=== PATIENT | female | born 1960 | race Caucasian/White ===

== ENCOUNTER 2021-03-26 14:40 | Inpatient (IN) ==
[2021-03-26 16:13] LABS: Basophils % 0.4 % (0.0-0.8); Eosinophils # 0.1 10*3/uL (0.0-0.87); Hematocrit 39.6 VOL% (35.7-47.0); Hemoglobin 13.1 GM/DL (12.0-16.0); Immature Granulocytes % 0.4 %; Immature Granulocytes Absolute 0.04 #; Lymphocytes # 1.4 10*3/uL (1.4-4.0); Lymphocytes % 12.5 % (21.3-54.2); Mean Corpuscular HGB Conc 33.1 GM/DL (32-36); Mean Corpuscular Volume 91.9 FL (87-102); Mean Platelet Volume 11.3 FL (9.6-12.0); Monocytes % 6.2 % (1.7-12.7); Neutrophils % 79.5 % (38.7-73.9); Platelet Count 231 T/CUMM (130-400); Red Blood Count 4.31 MC/CUMM (3.8-5.5); Red Cell Distribution Width 13.2 % (9.3-17.3); White Blood Count 11.4 T/CUMM (4-12)
[2021-03-26 16:26] LABS: Bilirubin,Urine Negative (Negative); Blood, Urine Negative (Negative); Glucose,Urine (UA) Negative (Negative); Ketones,Urine 20 mg/dL (Negative); Nitrite,Urine Negative (Negative); Protein,Urine Negative; Squamous Epithelial Cell,Urine Occasional /HPF (0-10); Urine Appearance CLEAR (Clear); Urine Color Straw (Yellow); Urine Specific Gravity 1.004 (1.001-1.035); Urine Urobilinogen < 2.0 EU/DL (0.2-1.0)
[2021-03-26 16:33] LABS: Bilirubin,Total 1.1 MG/DL (0.20-1.00); Calcium 8.9 MG/DL (8.5-10.1); Osmolality,Calculated 274.5 MOS/KG (273-304); Potassium 3.8 MMOL/L (3.5-5.1); Total Protein 7.5 G/DL (6.4-8.2)
[2021-03-26] MEDS ORDERED: ONDANSETRON 4 MG/2 ML VIAL IV PRN (19:26)
[2021-03-26] MEDS ORDERED: hydrALAZINE 20 MG/1 ML VIAL IV PRN (19:26)
[2021-03-26] MEDS ORDERED: DOCUSATE SODIUM 100 MG CAPSULE PO PRN (19:26)
[2021-03-26] MEDS ORDERED: GLUCAGON 1 MG VIAL IM PRN (19:26)
[2021-03-26] MEDS ORDERED: ZALEPLON 5 MG CAPSULE PO PRN (19:26)
[2021-03-26] MEDS ORDERED: DEXTROSE 50% 25 GM/50 ML VIAL IV PRN (19:26)
[2021-03-26] MEDS ORDERED: ACETAMINOPHEN 325 MG TABLET PO PRN (19:26)
[2021-03-26] MEDS ORDERED: HEPARIN 5,000 UNIT/1 ML VIAL IV ONE (19:29)
[2021-03-26] MEDS ORDERED: HYDROmorphone 2 MG/1 ML VIAL IV PRN (19:30)
[2021-03-26 20:32] LABS: Thyroid Stimulating Hormone 0.709 uIU/ml (0.358-3.74)
[2021-03-26 20:54] LABS: INR 1.1; PT Patient Result 12.4 SECS (10.5-12.0)
[2021-03-26] MEDS: ACETAMINOPHEN/CODEINE 300-30 MG TABLET PO PRN (21:33)
[2021-03-26] MEDS: DEXTROSE 5% NACL 0.9% 1,000 ML IV SCH (23:27)
[2021-03-27] MEDS ORDERED: HEPARIN DRIP 25,000 UNITS/500 ML PREMIX IV SCH (00:30)
[2021-03-27] MEDS: DEXTROSE 5% NACL 0.9% 1,000 ML IV SCH ×4 (04:39→17:31)
[2021-03-27 05:08] LABS: Basophils % 0.4 % (0.0-0.8); Eosinophils % 0.4 % (0.00-10.9); Hematocrit 35.1 VOL% (35.7-47.0); Hemoglobin 11.5 GM/DL (12.0-16.0); Immature Granulocytes % 0.5 %; Immature Granulocytes Absolute 0.04 #; Lymphocytes # 0.8 10*3/uL (1.4-4.0); Mean Corpuscular HGB Conc 32.8 GM/DL (32-36); Mean Corpuscular Volume 91.6 FL (87-102); Mean Platelet Volume 11.4 FL (9.6-12.0); Monocytes % 6.8 % (1.7-12.7); Neutrophils % 81.9 % (38.7-73.9); Platelet Count 195 T/CUMM (130-400); Red Blood Count 3.83 MC/CUMM (3.8-5.5); Red Cell Distribution Width 13.2 % (9.3-17.3); White Blood Count 8.1 T/CUMM (4-12)
[2021-03-27 05:39] LABS: Albumin 3.3 G/DL (3.4-5.0); Bilirubin,Total 0.7 MG/DL (0.20-1.00); Calcium 8.5 MG/DL (8.5-10.1); Osmolality,Calculated 278.5 MOS/KG (273-304); Potassium 3.6 MMOL/L (3.5-5.1); Total Protein 6.9 G/DL (6.4-8.2)
[2021-03-27 08:44] LABS: % Iron Saturation 15.5 % (18-50)
[2021-03-27] MEDS: PANTOPRAZOLE 40 MG VIAL IV SCH ×3 (09:00→21:26)
[2021-03-27] MEDS: LACTATED RINGERS 1,000 ML IV SCH (09:10)
[2021-03-27] MEDS ORDERED: propofoL 200 MG/20 ML VIAL IV ONE ×2 (09:24→09:41)
[2021-03-27] MEDS ORDERED: ONDANSETRON 4 MG/2 ML VIAL ONE (09:24)
[2021-03-27] MEDS ORDERED: LIDOCAINE 2% 5 ML VIAL ONE (09:24)
[2021-03-27] MEDS ORDERED: PROMETHAZINE INJ 25 MG in SODIUM CHLORIDE 0.9% 50 ML IV PRN (09:31)
[2021-03-27 10:14] LABS: AFP Tumor < 2.2 NG/ML (0-8); Hepatitis B Core IgM Quant < 0.05 Index; Hepatitis B Surface Ag Quant < 0.10 Index; Hepatitis B Surface Ag Result Non-Reactive (NonReactive); Hepatitis C Virus Ab Quant 0.04 Index; Hepatitis C Virus Ab Result Non-Reactive (NonReactive)
[2021-03-27] MEDS: PROMETHAZINE 25 MG TABLET PO SCH ×3 (10:37→21:27)
[2021-03-27] MEDS: ACETAMINOPHEN/CODEINE 300-30 MG TABLET PO PRN (14:20)
[2021-03-27] MEDS: APIXABAN 5 MG TABLET PO SCH (21:27)
[2021-03-28] MEDS: PROMETHAZINE 25 MG TABLET PO SCH ×4 (04:45→21:10)
[2021-03-28] MEDS: DEXTROSE 5% NACL 0.9% 1,000 ML IV SCH ×5 (07:40→18:32)
[2021-03-28] MEDS: APIXABAN 5 MG TABLET PO SCH ×2 (09:02→21:10)
[2021-03-28] MEDS: PANTOPRAZOLE 40 MG VIAL IV SCH ×3 (09:03→21:10)
[2021-03-28] MEDS: LACTATED RINGERS 1,000 ML IV SCH (09:38)
[2021-03-28 09:53] LABS: Basophils % 0.5 % (0.0-0.8); Eosinophils # 0.1 10*3/uL (0.0-0.87); Eosinophils % 2.2 % (0.00-10.9); Hematocrit 34.3 VOL% (35.7-47.0); Hemoglobin 10.9 GM/DL (12.0-16.0); Immature Granulocytes % 0.3 %; Immature Granulocytes Absolute 0.02 #; Lymphocytes # 1.1 10*3/uL (1.4-4.0); Lymphocytes % 18.4 % (21.3-54.2); Mean Corpuscular HGB Conc 31.8 GM/DL (32-36); Mean Corpuscular Volume 94.8 FL (87-102); Mean Platelet Volume 11.3 FL (9.6-12.0); Monocytes % 9.5 % (1.7-12.7); Neutrophils % 69.1 % (38.7-73.9); Platelet Count 200 T/CUMM (130-400); Red Blood Count 3.62 MC/CUMM (3.8-5.5); Red Cell Distribution Width 13.3 % (9.3-17.3)
[2021-03-28 11:04] LABS: Alanine Aminotransferase 16 U/L (13-56); Albumin 2.8 G/DL (3.4-5.0); Alkaline Phosphatase 92 U/L (45-117); Aspartate Amino Transferase 18 U/L (0-37); Bilirubin,Total < 0.39 MG/DL (0.20-1.00); Blood Urea Nitrogen 4 MG/DL (7-18); Calcium 8.3 MG/DL (8.5-10.1); Carbon Dioxide 26 MMOL/L (21-32); Estimated Glom Filtration Rate 116 ML/MIN; Glucose 80 MG/DL (74-106); Osmolality,Calculated 281.8 MOS/KG (273-304); Potassium 4.5 MMOL/L (3.5-5.1); Sodium 144 MMOL/L (136-145); Total Protein 6.3 G/DL (6.4-8.2)
[2021-03-29] MEDS: PROMETHAZINE 25 MG TABLET PO SCH ×5 (03:20→21:12)
[2021-03-29] MEDS: DEXTROSE 5% NACL 0.9% 1,000 ML IV SCH ×4 (03:20→16:00)
[2021-03-29] MEDS ORDERED: DIPHENOXYLATE/ATROPINE 2.5-0.025 MG TABLET PO PRN (08:20)
[2021-03-29] MEDS ORDERED: DIPHENOXYLATE/ATROPINE 2.5-0.025 MG TABLET PO ONE (08:24)
[2021-03-29] MEDS: APIXABAN 5 MG TABLET PO SCH ×2 (09:03→20:11)
[2021-03-29] MEDS: PANTOPRAZOLE 40 MG VIAL IV SCH ×3 (09:04→20:12)
[2021-03-29] MEDS: LACTATED RINGERS 1,000 ML IV SCH (09:20)
[2021-03-29 11:21] LABS: Antinuclear Ab, S 0.5 U
[2021-03-29] MEDS: ACETAMINOPHEN/CODEINE 300-30 MG TABLET PO PRN (15:59)
[2021-03-30] MEDS: DEXTROSE 5% NACL 0.9% 1,000 ML IV SCH ×2 (00:05→07:55)
[2021-03-30] MEDS: PROMETHAZINE 25 MG TABLET PO SCH ×3 (03:26→17:42)
[2021-03-30 04:57] LABS: Basophils % 0.3 % (0.0-0.8); Eosinophils # 0.2 10*3/uL (0.0-0.87); Eosinophils % 2.4 % (0.00-10.9); Hematocrit 32.7 VOL% (35.7-47.0); Hemoglobin 10.5 GM/DL (12.0-16.0); Immature Granulocytes % 0.4 %; Immature Granulocytes Absolute 0.03 #; Lymphocytes # 1.5 10*3/uL (1.4-4.0); Lymphocytes % 21.6 % (21.3-54.2); Mean Corpuscular HGB Conc 32.1 GM/DL (32-36); Mean Platelet Volume 11.3 FL (9.6-12.0); Monocytes % 6.9 % (1.7-12.7); Neutrophils % 68.4 % (38.7-73.9); Platelet Count 205 T/CUMM (130-400); Red Blood Count 3.48 MC/CUMM (3.8-5.5); Red Cell Distribution Width 13.4 % (9.3-17.3); White Blood Count 7.1 T/CUMM (4-12)
[2021-03-30 05:26] LABS: Calcium 8.1 MG/DL (8.5-10.1); Potassium 3.6 MMOL/L (3.5-5.1)
[2021-03-30] MEDS ORDERED: PANTOPRAZOLE 40 MG TABLET PO SCH (09:00)
[2021-03-30] MEDS: APIXABAN 5 MG TABLET PO SCH (09:47)
[2021-03-30] MEDS: LACTATED RINGERS 1,000 ML IV SCH (10:28)
[2021-03-30] MEDS: ACETAMINOPHEN/CODEINE 300-30 MG TABLET PO PRN (11:43)
[2021-03-30 11:50] LABS: Protein C Activity Plasma 112 % (70 - 150); Protein S Ag (Free) 45 % (65 - 160)
[2021-03-30 12:31] LABS: DRVVT Screen Ratio 1.02 ratio (<1.20); INR 1.2 (0.9-1.1)
[2021-03-30 13:36] LABS: Protein S Activity Plasma 68 % (65 - 160)
[2021-03-30 18:05] VITALS: BP 120/57
[2021-03-31 10:16] LABS: Factor V Leiden (R506Q) Mutati Negative (Negative)
[2021-03-31 15:41] LABS: Alpha-1-Antitrypsin, Serum 169 mg/dL (100 - 190)
[2021-03-31 17:17] LABS: Protein C, Total Antigen 88 % (63-153)
== END 2021-03-30 18:28 | disposition home or self-care (01) | DRG 442 ==
LOC: N.ED 14:40 → N.EDINP 19:25 → N.3E 21:15
PROVIDERS: ADMIT Internal Medicine; ATTEND Internal Medicine